=== PATIENT | male | born 1975 | race Hispanic/Latino ===

== ENCOUNTER 2019-10-30 18:09 | Emergency (ER) | payer SELFPAY ==
--- NOTE | ~2019-10-30 | XR_ITS ---
EXAMINATION: XR chest 1V portable DATE: 10/30/2019 19:35 INDICATION: Slurred speech. TECHNIQUE: A single frontal view of the chest was obtained. COMPARISON: None. FINDINGS: The chest demonstrates clear lungs without pneumonia, pleural effusion, or pneumothorax. Th e heart size is normal. IMPRESSION: 1. No acute cardiopulmonary disease. Reviewed, dictated and finalized at location A.
--- NOTE | ~2019-10-30 | CT_ITS ---
EXAMINATION: CT brain wo con DATE: 10/30/2019 20:22 INDICATION: Slurred speech. Right leg weakness. TECHNIQUE: Computed tomography (CT) of the head was performed without intravenous contrast. The mA wa s adjusted according to patient size. Iterative reconstruction technique was employed. The dose-lengt h product was 605.33 mGy-cm. COMPARISON: None FINDINGS: There is no intracranial hemorrhage, acute infarction, or abnormal intracranial mass lesion . The ventricles are normal in size. There is an old blowout fracture of medial wall of left orbit. T here is mucosal thickening in right maxillary sinus. The mastoid air cells are normal. IMPRESSION: 1. Normal brain. Reviewed, dictated and finalized at location A. IMPRESSION: 1. Normal brain.
[2019-10-30 18:28] VITALS: BP 108/73; PULSE 76; RESP 20; TEMP 36.4; O2SAT 100
[2019-10-30 18:38] LABS: Basophils Percent Auto 0.4 % (0.2-1.2); Eosinophils Absolute Auto 0.2 K/mm3 (0-0.3); Eosinophils Percent Auto 1.7 % (0-4.4); Hematocrit 38.1 % (42.0-52.0); Hemoglobin 13.5 g/dL (14.0-18.0); Immature Granulocyte Absolute 0.03 K/mm3 (0.00-0.031); Immature Granulocyte Percent A 0.3 % (0-0.5); Lymphocytes Absolute Auto 2.08 K/mm3 (0.9-3.2); Lymphocytes Percent Auto 20.9 % (18.3-44.2); Mean Corpuscular HGB Conc 35.4 g/dl (32-36); Mean Corpuscular Hemoglobin 32.3 pg (26-34); Mean Corpuscular Volume 91.1 fl (80-100); Monocytes Absolute Auto 1.3 K/mm3 (0.1-0.6); Monocytes Percent Auto 13.3 % (2.6-8.5); Neutrophils Absolute Auto 6.3 K/mm3 (1.3-6.7); Neutrophils Percent Auto 63.4 % (45.5-73.1); Platelet Count Result 229 k/mm3 (150-375); Red Blood Count 4.18 M/mm3 (4.6-6.20); Red Cell Distribution Width 12.1 % (11.5-14.5)
[2019-10-30 18:49] LABS: Prothrombin Time 12.4 Seconds (11.1-14.7)
[2019-10-30 18:50] LABS: Partial Thromboplastin Time 28.8 SECONDS (22.3-36.8)
[2019-10-30 19:03] LABS: Troponin I < 0.012 ng/mL (0.000-0.034)
[2019-10-30 19:16] LABS: Blood Urea Nitrogen 30 mg/dL (9-20); Calcium 9.2 mg/dL (8.4-10.2); Carbon Dioxide 23 mmol/L (22-30); Chloride 92 mmol/L (98-107); Estimated CRCL calculation 79 ml/min; Estimated Glomerular Filt Rate > 60; Glucose 607 mg/dL (75-110); Potassium 4.8 mmol/L (3.4-5.0); Sodium 128 mmol/L (137-145)
[2019-10-30 19:30] VITALS: BP 133/91; PULSE 93; RESP 23; O2SAT 98
[2019-10-30] MEDS: SODIUM CHLORIDE 0.9% IV 1,000 ML 999 ML IV CONT ×2 (19:59→20:48)
--- NOTE | 2019-10-30 20:11 | ED.NEUROSD ---
HPI - Neuro Symptoms/Deficit General Chief Complaint: Neuro Symptoms/Deficit Stated Complaint: slurred speech x2 weeks Time Seen by Provider: 10/30/19 19:22 History of Present Illness HPI Narrative: 44 yo male w/ h/o DM, COVID-19 presents c/o speech and gait problems. He reports that since recovering from COVID-19 2 weeks ago he has been having difficulties walking. He feels as though he cannot control his right leg. When he walks it seems to fatigue quickly and he has also noted that he tends to drift to the side. He also reports feeling as though his tongue is swollen and his speech sounds wrong. His glucose this evening was greater than 600. He has not been checking this regularly. Related Data Home Medications Medication Instructions Recorded Confirmed metformin 1,000 mg PO BID 10/30/19 Allergies Allergy/AdvReac Type Severity Reaction Status Date / Time No Known Allergies Allergy Verified 10/30/19 18:30 Review of Systems Review of Systems: All systems reviewed & are unremarkable except as noted in HPI and below Constitutional: Constitutional: Denies fever(s) and Reports weakness Eyes: Eyes: Denies change in vision Cardiovascular: Cardiovascular: Denies chest pain Respiratory: Respiratory: Denies dyspnea Gastrointestinal: Gastrointestinal: Denies nausea PMFSH Past Medical History Medical History (Updated 11/02/19 @ 09:51 by Tramaine Leal MD) COVID-19 Diabetes mellitus Exam Const: General: no acute distress and alert Orientation/consciousness: patient oriented x3 HENMT: Head: normal to inspection Eyes: Pupils: Equal, round and reactive pupils present EOM: EOMs intact bilaterally Neck: Neck: normal visual inspection and no lymphadenopathy Chest: Chest palpation & inspection: no tenderness Resp: Effort & Inspection: normal respiratory effort Auscultation: clear to auscultation bilaterally, no rales, no rhonchi and no wheezes Cardio: Jugular venous distension: no JVD Rate: regular rate Rhythm: regular rhythm Heart sounds: no murmurs GI: Inspection: non-distended GI Palp: Yes Soft to palpation and No Tenderness to palpation present (GI) Skin: General skin exam: normal color Neuro: General: patient oriented x3 and moves all extremities Speech: normal speech (somewhat limited by language barrier) Gait exam (Neuro): Normal gait present Extrem: General: no edema Psych: Appearance: well kempt Affect: normal affect Course Vital Signs Vital signs: Vital Signs Temperature 36.4 C 10/30/19 18:28 Pulse Rate 76 10/30/19 18:28 Respiratory Rate 20 10/30/19 18:28 Blood Pressure 108/73 10/30/19 18:28 Pulse Oximetry 100 10/30/19 18:28 Temperature 36.7 C 10/30/19 22:44 Pulse Rate 71 10/30/19 22:44 Respiratory Rate 18 10/30/19 22:44 Blood Pressure 189/101 H 10/30/19 22:44 Pulse Oximetry 98 10/30/19 22:44 MDM - Neuro Symptoms/Deficit MDM Narrative Medical decision making narrative: Exam grossly normal. CT negative. Symptoms likely related to prolonged hyperglycemia and dehydration. Cannot completely ruleout neuropathy or some late effect of COVID-19. Medical Records Attestation: I reviewed the patient's medical records. Lab Data Attestation: I reviewed the patient's lab results. Result diagrams: 10/30/19 18:31 10/30/19 18:31 Labs: Lab Results 10/30/19 10/30/19 10/30/19 Range/Units 18:31 18:31 18:31 WBC 10.0 (4.5-10.0) K/mm3 RBC 4.18 L (4.6-6.20) M/mm3 Hgb 13.5 L (14.0-18.0) g/dL Hct 38.1 L (42.0-52.0) % MCV 91.1 (80-100) fl MCH 32.3 (26-34) pg MCHC 35.4 (32-36) g/dl RDW 12.1 (11.5-14.5) % Plt Count 229 (150-375) k/mm3 MPV 10.0 (7.4-10.4) fl Immature Gran % (Auto) 0.3 (0-0.5) % Neut % (Auto) 63.4 (45.5-73.1) % Lymph % (Auto) 20.9 (18.3-44.2) % Pickett % (Auto) 13.3 H (2.6-8.5) % Eos % (Auto) 1.7 (0-4.4) % Baso % (Auto) 0.4 (0.2-
[2019-10-30 21:25] LABS: Glucose Point of Care 488 (65-105)
[2019-10-30 22:29] VITALS: BP 164/89; PULSE 81; RESP 18; O2SAT 99
[2019-10-30 22:29] LABS: Glucose Point of Care 448 (65-105)
[2019-10-30 22:44] VITALS: BP 189/101; PULSE 71; RESP 18; TEMP 36.7; O2SAT 98
== END 2019-10-30 22:45 | disposition home or self-care (01) ==
PROVIDERS: Emergency Medicine; Emergency Provider Emergency Medicine
DX: E11.65 Type 2 diabetes mellitus with hyperglycemia (principal); E86.0 Dehydration; Z79.84 Long term (current) use of oral hypoglycemic drugs; Z86.19 Personal history of other infectious and parasitic diseases
CPT/HCPCS: 36415; 70450; 71045; 80048; 82948; 84484; 85025; 85610; 85730; 96360; 96361; 99284; J7030